=== PATIENT | female | born 1995 | race Caucasian/White ===

== ENCOUNTER 2017-07-28 17:17 | Inpatient (IN) | payer BC ==
[2017-07-28] MEDS ORDERED: Sodium Chloride 0.9% 10 ML Syringe FLUSH PRN (18:41)
[2017-07-28] MEDS ORDERED: Butorphanol 1 MG/ML SDV IVPUSH PRN (18:41)
[2017-07-28] MEDS ORDERED: Misoprostol 200 MCG Tab PO PRN (18:41)
[2017-07-28] MEDS ORDERED: Sodium Chloride 0.9% 2.5 ML Syringe FLUSH PRN (18:41)
[2017-07-28] MEDS ORDERED: Nalbuphine 10 MG/1 ML Vial IVPUSH PRN (18:41)
[2017-07-28] MEDS ORDERED: Carboprost Tromethamine 250 MCG/1 ML Amp IM PRN (18:41)
[2017-07-28] MEDS ORDERED: Methylergonovine 0.2 MG/1 ML Amp IM PRN (18:41)
[2017-07-28] MEDS ORDERED: Lidocaine 1% 50 ML MDV INJECT PRN (18:41)
[2017-07-28] MEDS ORDERED: Water For Irrigation,Sterile 1,000 ML Container IRR PRN (18:41)
[2017-07-28] MEDS ORDERED: Oxytocin/0.9 % Sodium Chloride 30 UNIT/500 ML BAG IV SCH (18:45)
[2017-07-29] MEDS ORDERED: Terbutaline 1 MG/ML SDV SUBCUT PRN (08:24)
[2017-07-29] MEDS ORDERED: Oxytocin/0.9 % Sodium Chloride 30 UNIT/500 ML BAG IV SCH (08:30)
[2017-07-29] MEDS: Lactated Ringers 1,000 ML IV SCH ×2 (08:42→11:13)
--- NOTE | 2017-07-29 08:48 | PCM.LDHP ---
L&D History of Present Illness - General Date of Service: 07/29/17 Admit Problem/Dx: Patient Status Order with Admit Dx/Problem 07/28/17 17:25 Patient Status [ADT] Routine 07/28/17 18:41 Patient Status [ADT] Routine Admission Diagnosis/Problem Admission Diagnosis/Problem Source of Information: Patient History Limitations: Reports: No Limitations - History of Present Illness Improves with: Reports: None Worsens with: Reports: None Associated Symptoms: Reports: N - Related Data Allergies/Adverse Reactions: Allergies Allergy/AdvReac Type Severity Reaction Status Date / Time No Known Allergies Allergy Verified 06/02/17 07:47 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: Social & Family History - Tobacco Use Smoking Status *Q: Never Smoker Second Hand Smoke Exposure: No - Caffeine Use Caffeine Use: Reports: Tea - Recreational Drug Use Recreational Drug Use: No H&P Review of Systems - Review of Systems: Review Of Systems: See Below General: Reports: No Symptoms HEENT: Reports: No Symptoms Pulmonary: Reports: No Symptoms Cardiovascular: Reports: No Symptoms Gastrointestinal: Reports: No Symptoms Genitourinary: Reports: No Symptoms Musculoskeletal: Reports: No Symptoms Skin: Reports: No Symptoms Psychiatric: Reports: No Symptoms Neurological: Reports: No Symptoms Hematologic/Lymphatic: Reports: No Symptoms Immunologic: Reports: No Symptoms L&D Exam - Exam Exam: See Below - Vital Signs Weight: 104.78 kg - OB Specific Fundal Height In cm: 38 Contraction Intensity: Mild to Moderate Movement: Active Heart Tones: Present Presentation: Vertex - Lazaro Score Lazaro Score Cervix Position: Anterior Lazaro Score Consistency: Soft Alzaro Score Effacement: >80% Lazaro Score Dilation: > 5 cm Lazaro Score 's Station: -1 ,0 Lazaro Score Total: 12 - Exam General: Alert, Oriented HEENT: PERRLA, Conjunctiva Clear, EACs Clear, EOMI, Hearing Intact, Mucosa Moist & Selman, Nares Patent, Normal Nasal Septum, Posterior Pharynx Clear, TMs Clear Neck: Supple, Trachea Midline Lungs: Clear to Auscultation, Normal Respiratory Effort Cardiovascular: Regular Rate, Regular Rhythm GI/Abdominal Exam: Normal Bowel Sounds, Soft, Non-Tender, No Organomegaly, No Distention, No Abnormal Bruit, No Mass, Pelvis Stable Rectal Exam: Normal Exam, Normal Rectal Tone Genitourinary: Normal external exam, Normal bimanual exam, Normal speculum exam Back Exam: Normal Inspection, Full Range of Motion Extremities: Normal Inspection, Normal Range of Motion, Non-Tender, No Pedal Edema, Normal Capillary Refill Skin: Warm, Dry, Intact Neurological: Cranial Nerves Intact, Reflexes Equal Bilateral Psychiatric: Alert, Normal Affect, Normal Mood - Patient Data Lab Results Last 24 hrs: Laboratory Results - last 24 hr 07/28/17 07/28/17 07/28/17 Range/Units 17:30 18:58 18:58 WBC 11.15 H (4.0-11.0) K/uL RBC 3.90 L (4.30-5.90) M/uL Hgb 10.9 L (12.0-16.0) g/dL Hct 33.3 L (36.0-46.0) % MCV 85.4 (80.0-98.0) fL MCH 27.9 (27.0-32.0) pg MCHC 32.7 (31.0-37.0) g/dL RDW Std Deviation 41.6 (28.0-62.0) fl RDW Coeff of Kory 14 (11.0-15.0) % Plt Count 276 (150-400) K/uL MPV 9.10 (7.40-12.00) fL Nucleated RBC % 0.0 /100WBC Nucleated RBCs # 0 K/uL Membrane Rupture NEGATIVE Blood Type A POSITIVE Antibody Screen NEGATIVE Result Diagrams: 07/28/17 18:58 Problem List Initiated/Reviewed/Updated: Yes Orders Last 24hrs: Active Orders 24 hr Category Date Time Status Patient Status [ADT] Routine ADT 07/28/17 17:25 Active Patient Status [ADT] Routine ADT 07/28/17 18:41 Active Bedrest Bathroom Privileges [RC] ASDIRECTED Care 07/29/17 08:24 Active Communication Order [RC] ASDIRECTED Care 07/29/17 08:24 Active Communication Order [RC] ASDIRECTED Care 07/29/17 08:24 Active May Shower [RC] ASDIRECTED Care 07/28/17 18:41 Active Notify Provider [RC] PRN Care 07/28/17 18:41 Active Notify Provider [RC] PRN Care 07/29/17 08:24 Active Oxygen Therapy [RC] ASDIRECTED Care 07/29/17 08:24 Active Up ad Herlinda [RC] ASDIRECTED Care 07/28/17 18:41 Active Vaginal Exam [RC] PRN Care 07/29/17 08:24 Active Vital Signs [RC] PER UNIT ROUTINE Care 07/28/17 17:25 Active Vital Signs [RC] PER UNIT ROUTINE Care 07/29/17 08:24 Active Clear Liquid Diet [DIET] Diet 07/29/17 Lunch Active Butorphanol [Stadol] Med 07/28/17 18:41 Active 1 mg IVPUSH Q1H PRN Carboprost Tromethamine [Hemabate DS] Med 07/28/17 18:41 Active 250 mcg IM ASDIRECTED PRN Lactated Ringers [Ringers, Lactated] 1,000 ml Med 07/28/17 18:45 Active IV ASDIRECTED Lidocaine 1% [Xylocaine 1%] Med 07/28/17 18:41 Active 50 ml INJECT .ONCE PRN Methylergonovine [Methergine] Med 07/28/17 18:41 Active 0.2 mg IM ASDIRECTED PRN Misoprostol [Cytotec] Med 07/28/17 18:41 Active 200 mcg PO .ONCE PRN Nalbuphine [Nubain] Med 07/28/17 18:41 Active 10 mg IVPUSH Q1H PRN Oxytocin/0.9 % Sodium Chloride [Oxytocin 30 Unit/500 ML Med 07/28/17 18:45 Active -NS] 30 unit in 500 ml IV TITRATE Oxytocin/0.9 % Sodium Chloride [Oxytocin 30 Unit/500 ML Med 07/29/17 08:30 Active -NS] 30 unit in 500 ml IV TITRATE Sodium Chloride 0.9% [Saline Flush] Med 07/28/17 18:41 Active 10 ml FLUSH ASDIRECTED PRN Sodium Chloride 0.9% [Saline Flush] Med 07/28/17 18:41 Active 2.5 ml FLUSH ASDIRECTED PRN Terbutaline [Brethine] Med 07/29/17 08:24 Active 0.25 mg SUBCUT ASDIRECTED PRN Water For Irrigation,Sterile [Sterile Water for Med 07/28/17 18:41 Active Irrigation] 1,000 ml IRR ASDIRECTED PRN Scalp Electrode [WOMSER] Per Unit Routine Oth 07/28/17 18:41 Ordered Medication Administration Instruction [OM.PC] Q3H Oth 07/29/17 08:30 Ordered Peripheral IV Insertion Adult [OM.PC] Routine Oth 07/28/17 18:41 Ordered Resuscitation Status Routine Resus Stat 07/28/17 17:25 Ordered Medication Orders Butorphanol Tartrate (Stadol) 1 mg IVPUSH Q1H PRN PRN Reason: Pain Carboprost Tromethamine (Hemabate Ds) 250 mcg IM ASDIRECTED PRN PRN Reason: Post Hemorrhage Lactated Ringer's (Ringers, Lactated) 1,000 mls @ 150 mls/hr IV ASDIRECTED ABEL Last Admin: 07/29/17 08:42 Dose: 150 mls/hr Oxytocin/Sodium Chloride (Oxytocin 30 Unit/500 Ml-Ns) 30 unit in 500 mls @ 999 mls/hr IV TITRATE ABEL Oxytocin/Sodium Chloride (Oxytocin 30 Unit/500 Ml-Ns) 30 unit in 500 mls @ 2 mls/hr IV TITRATE ABEL; 2 MUNITS/MIN PRN Reason: Protocol Last Admin: 07/29/17 08:45 Dose: 2 munits/min, 2 mls/hr Lidocaine HCl (Xylocaine 1%) 50 ml INJECT .ONCE PRN PRN Reason: Laceration repair Methylergonovine Maleate (Methergine) 0.2 mg IM ASDIRECTED PRN PRN Reason: Post Hemorrhage Misoprostol (Cytotec) 200 mcg PO .ONCE PRN PRN Reason: Post Hemorrhage Nalbuphine HCl (Nubain) 10 mg IVPUSH Q1H PRN PRN Reason: Pain (severe 7-10) Sodium Chloride (Saline Flush) 10 ml FLUSH ASDIRECTED PRN PRN Reason: Keep Vein Open Sodium Chloride (Saline Flush) 2.5 ml FLUSH ASDIRECTED PRN PRN Reason: Keep Vein Open Sterile Water (Sterile Water For Irrigation) 1,000 ml IRR ASDIRECTED PRN PRN Reason: delivery Terbutaline Sulfate (Brethine) 0.25 mg SUBCUT ASDIRECTED PRN PRN Reason: Tacysystole Assessment/Plan Comment:: Term in early active phase. I did the artificial rupture of the membranes clear fluid planning to start her on low-dose Pitocin to enhance her labor and the patient can have epidural if she needed
[2017-07-29] MEDS ORDERED: Ropivacaine 0.2% 2 MG/ML 20 ML SDV ONE (09:33)
[2017-07-29] MEDS ORDERED: Ropivacaine 100 ML ONE (09:33)
[2017-07-29] MEDS ORDERED: fentaNYL 100 MCG/2 ML SDV ONE (09:34)
[2017-07-29] MEDS ORDERED: Lidocaine 1% 0 ML ONE (09:58)
--- NOTE | 2017-07-29 10:34 | PCM.PREANE ---
Preanesthetic Assessment - Anesthesia/Transfusion/Family Hx Anesthesia History: No Prior Anesthesia Family History of Anesthesia Reaction: No Transfusion History: No Prior Transfusion(s) - Review of Systems General: No Symptoms Pulmonary: No Symptoms Cardiovascular: No Symptoms Gastrointestinal: No Symptoms Neurological: No Symptoms Other: Reports: None (Denies any personal or family hx of bleeding or clotting problelms) - Physical Assessment Height: 1.71 m Weight: 104.78 kg ASA Class: 2 Mental Status: Alert & Oriented x3 Airway Class: Mallampati = 2 Dentition: Reports: Normal Dentition - Lab Values: Laboratory Last Values WBC 11.15 K/uL (4.0-11.0) H 18 18:58 RBC 3.90 M/uL (4.30-5.90) L 18 18:58 Hgb 10.9 g/dL (12.0-16.0) L 18 18:58 Hct 33.3 % (36.0-46.0) L 07/28/17 18:58 MCV 85.4 fL (80.0-98.0) 18 18:58 MCH 27.9 pg (27.0-32.0) 1618 18:58 MCHC 32.7 g/dL (31.0-37.0) 18 18:58 RDW Std Deviation 41.6 fl (28.0-62.0) 18 18:58 RDW Coeff of Kory 14 % (11.0-15.0) 18 18:58 Plt Count 276 K/uL (150-400) 18 18:58 MPV 9.10 fL (7.40-12.00) 18 18:58 Nucleated RBC % 0.0 /100WBC 07/28/17 18:58 Nucleated RBCs # 0 K/uL 18 18:58 Membrane Rupture NEGATIVE 07/28/17 17:30 Blood Type A POSITIVE 18 18:58 Antibody Screen NEGATIVE 07/28/17 18:58 - Allergies Allergies/Adverse Reactions: Allergies Allergy/AdvReac Type Severity Reaction Status Date / Time No Known Allergies Allergy Verified 06/02/17 07:47 - Acknowledgements Anesthesia Type Planned: Epidural Pt an Appropriate Candidate for the Planned Anesthesia: Yes Alternatives and Risks of Anesthesia Discussed w Pt/Guardian: Yes Pt/Guardian Understands and Agrees with Anesthesia Plan: Yes 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: - SUBSTANCE USE Smoking Status *Q: Never Smoker Tobacco Use Within Last Twelve Months: No Second Hand Smoke Exposure: No Recreational Drug Use History: No - CURRENT (IN HOUSE) MEDS Current Meds: Current Medications Butorphanol Tartrate (Stadol) 1 mg IVPUSH Q1H PRN PRN Reason: Pain Carboprost Tromethamine (Hemabate Ds) 250 mcg IM ASDIRECTED PRN PRN Reason: Post Hemorrhage Lactated Ringer's (Ringers, Lactated) 1,000 mls @ 150 mls/hr IV ASDIRECTED ABEL Last Infusion: 07/29/17 10:28 Dose: 999 mls/hr Oxytocin/Sodium Chloride (Oxytocin 30 Unit/500 Ml-Ns) 30 unit in 500 mls @ 999 mls/hr IV TITRATE ABEL Oxytocin/Sodium Chloride (Oxytocin 30 Unit/500 Ml-Ns) 30 unit in 500 mls @ 2 mls/hr IV TITRATE ABEL; 2 MUNITS/MIN PRN Reason: Protocol Last Titration: 07/29/17 10:31 Dose: 6 munits/min, 6 mls/hr Lidocaine HCl (Xylocaine 1%) 50 ml INJECT .ONCE PRN PRN Reason: Laceration repair Methylergonovine Maleate (Methergine) 0.2 mg IM ASDIRECTED PRN PRN Reason: Post Hemorrhage Misoprostol (Cytotec) 200 mcg PO .ONCE PRN PRN Reason: Post Hemorrhage Nalbuphine HCl (Nubain) 10 mg IVPUSH Q1H PRN PRN Reason: Pain (severe 7-10) Sodium Chloride (Saline Flush) 10 ml FLUSH ASDIRECTED PRN PRN Reason: Keep Vein Open Sodium Chloride (Saline Flush) 2.5 ml FLUSH ASDIRECTED PRN PRN Reason: Keep Vein Open Sterile Water (Sterile Water For Irrigation) 1,000 ml IRR ASDIRECTED PRN PRN Reason: delivery Terbutaline Sulfate (Brethine) 0.25 mg SUBCUT ASDIRECTED PRN PRN Reason: Tacysystole Discontinued Medications Fentanyl (Sublimaze) Confirm Administered Dose 300 mcg .ROUTE .[facility] ONE Stop: 07/29/17 09:35 Ropivacaine (Naropin 0.2%) Confirm Administered Dose 100 mls @ as directed .ROUTE .[facility] ONE Stop: 07/29/17 09:34 Lidocaine HCl (Xylocaine-Mpf 1%) Confirm Administered Dose 2 mls @ as directed .ROUTE .[facility] ONE Stop: 07/29/17 09:59 Ropivacaine (Naropin 0.2%) Confirm Administered [facility] Stop: 07/29/17 09:34
--- NOTE | 2017-07-29 10:50 | PCM.SN ---
- Free Text/Narrative Note: I was notified by Chin HACKETT for assistance with epidural placement. Consent and Pre-Anes performed prior to my arrival by Chin HACKETT. Using sterile technique. Betadine prep x 3 was performed. Drape was placed. L3-4 space was identified and 1% Lidocaine was infiltrated in this region. 17g Touhy needle was then introduced until loss of resistance was obtained at approximately 7 cm. Epidural catheter was then threaded in the 15cm before withdrawing the touhy needle. Catheter was secured with tegaderm. 1.5% Lidocaine with 1:200:000 Epi 3 mL was injected into the epidural catheter. Negative for CSF, RBC, Test dose. 0.2% Ropivacaine 8mL and Fentanyl 100mcg were given via the epidural over 8 minutes. Pt tolerated placement well. VSS throughout placement. Pt was started on 0.2% Ropivacaine 8mL/Hr with [id number] PRN 5 mL bolus for breakthrough pain. 1 hour lockout 23mL/hr.
[2017-07-29] MEDS ORDERED: Bisacodyl 10 MG Supp RECTAL PRN (16:07)
[2017-07-29] MEDS ORDERED: Ibuprofen 400 MG Tab PO PRN (16:07)
[2017-07-29] MEDS ORDERED: Acetaminophen 500 MG Tab PO PRN ×2 (16:07)
[2017-07-29] MEDS ORDERED: Witch Hazel Medicated Pads 40/Jar TOP PRN (16:07)
[2017-07-29] MEDS ORDERED: oxyCODONE 5 MG Tab PO PRN (16:07)
[2017-07-29] MEDS ORDERED: Ibuprofen 800 MG Tab PO PRN (16:07)
[2017-07-29] MEDS ORDERED: Lanolin 100% Cream 7 GM Tube TOP PRN (16:07)
[2017-07-29] MEDS ORDERED: Benzocaine/Menthol 20%-0.5% Spray 78 GM Cannister TOP PRN (16:07)
[2017-07-29] MEDS ORDERED: Docusate Sodium 100 MG Cap PO PRN (16:07)
--- NOTE | 2017-07-29 19:50 | OR ---
SURGEON: Malik Bryant MD DATE OF PROCEDURE: Ms. Melo is a 21-year-old primigravida. She is followed in our clinic primarily by our nurse wool fleece sorter, Dorothy Asif. She had no complication. Her GBS status was negative. She is admitted in early active labor. At the time of admission, she is 5 cm, 70% vertex, and -3. She had an artificial rupture of the membrane by me at 8:30 this morning. She required Pitocin augmentation. She has progress without any problem and she was able to accomplish normal spontaneous vaginal delivery of a male fetus. score reported to be 8 and 9. The weight is not available. The placenta delivered spontaneous, complete, and intact. The perineum was intact. There was no perineal or labial laceration. Estimated blood loss is 300 to 350 mL. heart rate was category 1 through the entire process of labor. There was no complication in this labor or . MARGIE / ABRAHAM /[id number]
--- NOTE | 2017-07-30 07:03 | PCM48HPAN ---
Post Anesthesia Note - EVALUATION WITHIN 48HRS OF ANESTHETIC Vital Signs in Normal Range: Yes Patient Participated in Evaluation: Yes Respiratory Function Stable: Yes Airway Patent: Yes Cardiovascular Function Stable: Yes Hydration Status Stable: Yes Pain Control Satisfactory: Yes Nausea and Vomiting Control Satisfactory: Yes Mental Status Recovered: Yes
--- NOTE | 2017-07-30 14:23 | PCM.PNPP ---
- General Info Date of Service: 07/30/17 Functional Status: Reports: Pain Controlled - Review of Systems General: Reports: No Symptoms HEENT: Reports: No Symptoms Pulmonary: Reports: No Symptoms Cardiovascular: Reports: No Symptoms Gastrointestinal: Reports: No Symptoms Genitourinary: Reports: No Symptoms Musculoskeletal: Reports: No Symptoms Skin: Reports: No Symptoms Neurological: Reports: No Symptoms Psychiatric: Reports: No Symptoms - General Info Date of Service: 07/30/17 - Patient Data Vital Signs - Most Recent: Last Vital Signs Temp 36.6 C 07/30/17 08:30 Pulse 76 07/30/17 08:30 Resp 14 07/30/17 08:30 BP 113/56 L 07/30/17 08:30 Pulse Ox 97 07/30/17 08:30 Weight - Most Recent: 104.78 kg I&O - Last 24 Hours: Intake & Output 07/29/17 07/30/17 07/30/17 22:59 06:59 14:59 Output Total 600 Balance -600 Lab Results - Last 24 Hours: Laboratory Results - last 24 hr 07/30/17 Range/Units 05:16 Hgb 9.9 L (12.0-16.0) g/dL Hct 30.0 L (36.0-46.0) % Med Orders - Current: Current Medications Acetaminophen (Tylenol Extra Strength) 500 mg PO Q4H PRN PRN Reason: Pain Acetaminophen (Tylenol Extra Strength) 1,000 mg PO Q4H PRN PRN Reason: Pain Last Admin: 07/30/17 09:27 Dose: 1,000 mg Benzocaine/Menthol (Dermoplast Pain Relief 20%-0.5% [place]) 78 gm TOP ASDIRECTED PRN PRN Reason: Perineal Comfort Measure Bisacodyl (Dulcolax) 10 mg RECTAL .ONCE PRN PRN Reason: Constipation Butorphanol Tartrate (Stadol) 1 mg IVPUSH Q1H PRN PRN Reason: Pain Carboprost Tromethamine (Hemabate Ds) 250 mcg IM ASDIRECTED PRN PRN Reason: Post Hemorrhage Docusate Sodium (Colace) 100 mg PO BID PRN PRN Reason: Constipation Emollient Ointment (Lansinoh Hpa) 0 gm TOP ASDIRECTED PRN PRN Reason: Sore Nipples Lactated Ringer's (Ringers, Lactated) 1,000 mls @ 150 mls/hr IV ASDIRECTED ABEL Last Admin: 07/29/17 11:13 Dose: 150 mls/hr Oxytocin/Sodium Chloride (Oxytocin 30 Unit/500 Ml-Ns) 30 unit in 500 mls @ 999 mls/hr IV TITRATE ABEL Oxytocin/Sodium Chloride (Oxytocin 30 Unit/500 Ml-Ns) 30 unit in 500 mls @ 2 mls/hr IV TITRATE ABEL; 2 MUNITS/MIN PRN Reason: Protocol Last Titration: 07/29/17 16:05 Dose: 500 munits/min, 500 mls/hr Ibuprofen (Motrin) 400 mg PO Q4H PRN PRN Reason: Pain Ibuprofen (Motrin) 800 mg PO Q6H PRN PRN Reason: Pain Lidocaine HCl (Xylocaine 1%) 50 ml INJECT .ONCE PRN PRN Reason: Laceration repair Methylergonovine Maleate (Methergine) 0.2 mg IM ASDIRECTED PRN PRN Reason: Post Hemorrhage Misoprostol (Cytotec) 200 mcg PO .ONCE PRN PRN Reason: Post Hemorrhage Nalbuphine HCl (Nubain) 10 mg IVPUSH Q1H PRN PRN Reason: Pain (severe 7-10) Oxycodone HCl (Oxycodone) 5 mg PO Q2H PRN PRN Reason: Pain Sodium Chloride (Saline Flush) 10 ml FLUSH ASDIRECTED PRN PRN Reason: Keep Vein Open Sodium Chloride (Saline Flush) 2.5 ml FLUSH ASDIRECTED PRN PRN Reason: Keep Vein Open Sterile Water (Sterile Water For Irrigation) 1,000 ml IRR ASDIRECTED PRN PRN Reason: delivery Last Admin: 07/29/17 16:00 Dose: 1,000 ml Terbutaline Sulfate (Brethine) 0.25 mg SUBCUT ASDIRECTED PRN PRN Reason: Tacysystole Witch Safia (Tucks) 1 pad TOP ASDIRECTED PRN PRN Reason: comfort care Discontinued Medications Fentanyl (Sublimaze) Confirm Administered Dose 300 mcg .ROUTE .[facility] ONE Stop: 07/29/17 09:35 Last Admin: 07/29/17 22:47 Dose: Not Given Ropivacaine (Naropin 0.2%) Confirm Administered Dose 100 mls @ as directed .ROUTE .[facility] ONE Stop: 07/29/17 09:34 Last Admin: 07/29/17 22:47 Dose: Not Given Lidocaine HCl (Xylocaine-Mpf 1%) Confirm Administered Dose 2 mls @ as directed .ROUTE .[facility] ONE Stop: 07/29/17 09:59 Last Admin: 07/29/17 22:47 Dose: Not Given Ropivacaine (Naropin 0.2%) Confirm Administered Dose 20 ml .ROUTE .[facility] ONE Stop: 07/29/17 09:34 Last Admin: 07/29/17 22:47 Dose: Not Given - Infant Interaction Infant Disposition, : in Room with Family Infant Interaction: Holding Infant Feeding: Attempted ; Nursed Fair/Poor - Recovery Exam Fundal Tone: Firm Fundal Level: 2 Fingerbreadths Below Umbilicus Fundal Placement: Midline Lochia Amount: Scant Lochia Color: Rubra/Red Perineum Description: Intact, Minimal Bruising/Swelling Episiotomy/Laceration: None Bladder Status: Voiding Urinary Elimination: Voided - Exam General: Alert, Oriented HEENT: Pupils Equal Neck: Supple Lungs: Clear to Auscultation, Normal Respiratory Effort Cardiovascular: Regular Rate, Regular Rhythm GI/Abdominal Exam: Normal Bowel Sounds, Soft, Non-Tender, No Organomegaly, No Distention, No Abnormal Bruit, No Mass, Pelvis Stable Extremities: Normal Inspection, Normal Range of Motion, Non-Tender, No Pedal Edema, Normal Capillary Refill Skin: Warm, Dry, Intact Wound/Incisions: Healing Well Neurological: No New Focal Deficit Psy/Mental Status: Alert, Normal Affect, Normal Mood - Problem List Review Problem List Initiated/Reviewed/Updated: Yes - My Orders Last 24 Hours: My Active Orders 07/29/17 16:07 Acetaminophen [Tylenol Extra Strength] 1,000 mg PO Q4H PRN Acetaminophen [Tylenol Extra Strength] 500 mg PO Q4H PRN Benzocaine/Menthol [Dermoplast Pain Relief 20%-0.5% [place]] 78 gm TOP ASDIRECTED PRN Bisacodyl [Dulcolax] 10 mg RECTAL .ONCE PRN Docusate Sodium [Colace] 100 mg PO BID PRN Ibuprofen [Motrin] 400 mg PO Q4H PRN Ibuprofen [Motrin] 800 mg PO Q6H PRN Lanolin [Lansinoh HPA] See Dose Instructions TOP ASDIRECTED PRN Nandini Baig [Tucks] 1 pad TOP ASDIRECTED PRN oxyCODONE 5 mg PO Q2H PRN 07/29/17 16:08 Patient Status [ADT] Routine May Shower [RC] ASDIRECTED Up ad Herlinda [RC] ASDIRECTED Vital Signs [RC] PER UNIT ROUTINE Assess Lochia [WOMSER] Per Unit Routine Assess Uterine Involution [WOMSER] Per Unit Routine Peripheral IV Discontinue [OM.PC] Routine 07/30/17 Breakfast Regular Diet [DIET] - Plan Plan:: Term in early active phase. I did the artificial rupture of the membranes clear fluid planning to start her on low-dose Pitocin to enhance her labor and the patient can have epidural if she needed
== END 2017-07-30 18:30 | disposition home or self-care (01) | DRG 560 ==
LOC: MW.OBCHECK 17:17 → MW.OB 17:19 → MW.OBCHECK 18:40 → MW.OB 18:41 → OBSVTOIN 07-29 16:01
PROVIDERS: ADMIT Obstetrics & Gynecology; ATTEND Obstetrics & Gynecology
PROC: 10E0XZZ Delivery of Products of Conception, External Approach (ICD-10-PCS; principal; 2017-07-29)
PROC: 10907ZC Drainage of Amniotic Fluid, Therapeutic from Products of Conception, Via Natural or Artificial Opening (ICD-10-PCS; 2017-07-29)
DX: O80 Encounter for full-term uncomplicated delivery (principal); Z3A.39 39 weeks gestation of pregnancy; Z37.0 Single live birth
CPT/HCPCS: 36415; 51702; 59025; 59409; 84112; 85014; 85018; 85027; 86850; 86900; 86901; A9270-GY; J2590; J7120